=== PATIENT | female | born 1965 | race Caucasian/White ===

== ENCOUNTER 2022-08-14 14:27 | Day surgery (SDC) | payer BC, OTHER ==
[2022-08-15] MEDS ORDERED: Lactated Ringers 1,000 ML IV SCH (07:00)
[2022-08-15] MEDS ORDERED: Sodium Chloride 0.9% 10 ML Syringe FLUSH PRN (07:00)
[2022-08-15] MEDS ORDERED: Propofol 200 MG/20 ML SDV IV ONE (07:01)
== END 2022-08-15 09:37 | disposition home or self-care (01) ==
LOC: FB.SDS 14:27
PROVIDERS: ATTEND Surgery
DX: Z12.11 Encounter for screening for malignant neoplasm of colon (principal); K63.5 Polyp of colon; K57.30 Diverticulosis of large intestine without perforation or abscess without bleeding; Z79.899 Other long term (current) drug therapy; Z88.0 Allergy status to penicillin; Z98.890 Other specified postprocedural states; Z90.710 Acquired absence of both cervix and uterus; Z88.1 Allergy status to other antibiotic agents
CPT/HCPCS: 00812-QZ; 88305; J2704; J7120